=== PATIENT | female | born 1970 | race Caucasian/White ===

== ENCOUNTER 2016-11-09 10:30 | Emergency (ER) | payer OTHER ==
[2016-11-09 10:53] LABS: BASOPHIL % 0.2 % (0.0-0.4); Eosinophil % 1.7 % (0.00-5.0); Granulocytes % 58.4 % (36.0-66.0); Lymphocytes % 34.2 % (24.0-44.0); Mean Cell Volume 94.1 fl (78-100); Mean Corpuscular Hemoglobin 31.1 pg (26-32); Monocytes % 5.5 % (0.0-12.0); Platelet Count 265 K/mm3 (150-450); Red Cell Distribution Width 13.4 % (11.5-14.0); White Blood Count 8.1 K/mm3 (4.0-10.5)
[2016-11-09 11:23] LABS: ALBUMIN 3.3 g/dL (3.4-5.0); BLOOD UREA NITROGEN 9 mg/dL (9-20); CHLORIDE 105 mEq/L (98-107); Carbon Dioxide 22.3 mEq/L (21-32); Glucose 127 MG/DL (70-110); Potassium 3.5 mEq/L (3.5-5.1); SODIUM 140 mEq/L (136-145); Total Protein 7.9 gm/dL (6.4-8.2)
[2016-11-09 11:24] LABS: ALKALINE PHOSPHATASE 60 U/L (46-116); ANION GAP 16.1 MEQ/L (5-15); SGOT/AST 60 U/L (15-37); SGPT/ALT 68 U/L (12-78)
--- NOTE | 2016-11-09 11:25 | ERPHSYRPT ---
- History of Present Illness Time Seen by Provider: 11/09/16 11:10 Historian: patient, family Exam Limitations: no limitations Patient Subjective Stated Complaint: PT STATES SHE HAS HAD CHEST PAIN FOR THE PAST 2 WEEKS OFF AND ON. WORSE OVER THE LAST 12 HOURS. Triage Nursing Assessment: PT PINK, WARM, DRY. PT AFEBRILE. Physician History: Pt. states the upper left chest pain has been present x 3 weeks. 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 She has congenital syringomelia of both UE. She has been referred to pain management, but is unable to get appointment yet. Her PCP told her she would not get pain medicine from them today, so she came to the ED instead of her appt. Timing/Duration: week(s) (3) Activities at Onset: activity Quality: aching Location: shoulder Chest Pain Radiation: arm Severity of Pain-Max: moderate Severity of Pain-Current: moderate Prior Chest Pain/Cardiac Workup: no prior cardiac workup Nitro Today/Relief: no nitro taken today Aspirin Treatment Today: no aspirin today Allergies/Adverse Reactions: No Known Drug Allergies Allergy (Unverified 11/09/16 10:39) Home Medications: Buspirone HCl 5 mg [Buspar 5 mg] 0 mg PO HS 11/04/16 [History] Lisinopril [Zestril] 40 mg PO DAILY 11/04/16 [History] Hx Tetanus, Diphtheria Vaccination/Date Given: Yes (UP TO DATE) Hx Influenza Vaccination/Date Given: No Hx Pneumococcal Vaccination/Date Given: No Immunizations Up to Date: Yes - Review of Systems Constitutional: No Symptoms Eyes: No Symptoms Ears, Nose, & Throat: No Symptoms Respiratory: No Symptoms Cardiac: Chest Pain Abdominal/Gastrointestinal: No Symptoms Musculoskeletal: Arthralgias Skin: No Symptoms Neurological: No Symptoms Psychological: No Symptoms Endocrine: No Symptoms Hematologic/Lymphatic: No Symptoms Immunological/Allergic: No Symptoms - Past Medical History Pertinent Past Medical History: Yes Cardiac History: Hypertension Musculoskeletal History: Arthritis - Past Surgical History Past Surgical History: Yes Other Surgical History: CARPAL TUNEL - Social History Smoking Status: Never smoker Exposure to second hand smoke: Yes Drug Use: none Patient Lives Alone: No - Female History Hx Last Menstrual Period: 10/08/16 - Nursing Vital Signs Nursing Vital Signs: Initial Vital Signs Temperature 99.0 F Temperature Source Oral Pulse Rate [Bilateral Radial] 73 Pulse Rate 68 Respiratory Rate 18 Blood Pressure [Right Arm] 184/106 Pain Intensity 10 - Physical Exam General Appearance: mild distress Eye Exam: eyes nml inspection Ears, Nose, Throat Exam: normal ENT inspection Neck Exam: normal inspection, non-tender, supple, full range of motion Respiratory Exam: normal breath sounds, lungs clear, airway intact Cardiovascular Exam: regular rate/rhythm, normal heart sounds, normal peripheral pulses Gastrointestinal/Abdomen Exam: soft, normal bowel sounds Extremity Exam: pelvis stable, limited range of motion (left shoulder D/T pain) , other (Baseline syringomelia congenitally. ) Neurologic Exam: alert, oriented x 3, cooperative Skin Exam: normal color, warm, dry SpO2 Interpretation: normal SpO2: 100 Oxygen Delivery: Room Air - Course Nursing assessment & vital signs reviewed: Yes EKG Interpreted by Me: RATE (62), NORMAL AXIS, NORMAL INTERVALS, Other (Normal ECG) - Radiology Exams Chest X-ray Interpretation: Interpreted by me, Reviewed by me, Nml Heart Size, Other ( Mild right hilar prominence. No old image for comparison) Ordered Tests: Active Orders 24 hr Category Date Time Status Accounting Specialist STAT Care 11/09/16 10:42 Active EKG-ER Only STAT Care 11/09/16 10:42 Active IV Insertion STAT Care 11/09/16 10:42 Active CHEST 2 VIEWS (PA AND LAT) Stat Exams 11/09/16 10:43 Taken CBC W DIFF Stat Lab 11/09/16 10:45 Completed CMP Stat Lab 11/09/16 10:45 Received TROPONIN Stat Lab 11/09/16 10:45 Received Lab/Rad Data: Laboratory Result Diagrams 11/09/16 10:45 Laboratory Results 11/09/16 Range/Units 10:45 WBC 8.1 (4.0-10.5) K/mm3 RBC 4.60 (4.1-5.4) M/mm3 Hgb 14.3 (12.0-16.0) gm/dl Hct 43.3 (35-47) % MCV 94.1 (78-100) fl MCH 31.1 (26-32) pg MCHC 33.0 (32-36) g/dl RDW 13.4 (11.5-14.0) % Plt Count 265 (150-450) K/mm3 MPV 10.0 H (6-9.5) fl Gran % 58.4 (36.0-66.0) % Lymphocytes % 34.2 (24.0-44.0) % Monocytes % 5.5 (0.0-12.0) % Eosinophils % 1.7 (0.00-5.0) % Basophils % 0.2 (0.0-0.4) % Basophils # 0.02 (0-0.4) - Progress Blood Culture(s) Obtained: No Antibiotics given: No Will see patient in: office (PCP and pain management 1 week as scheduled.) Counseled pt/family regarding: lab results, diagnosis, need for follow-up, rad results - Departure Time of Disposition: 11:30 Departure Disposition: Home Clinical Impression: Chest wall pain, Arthritis of left shoulder region Condition: Stable Critical Care Time: No Instructions: Atypical Chest Pain Prescriptions: Naproxen [Naprosyn] 500 mg PO BID #20 tablet
[2016-11-09 11:27] LABS: TROPONIN < 0.017 ng/ml (0.000-0.056)
[2016-11-09] MEDS ORDERED: TORAdol 30 mg Injection IV ONE (11:29)
[2016-11-09] MEDS ORDERED: TORAdol 30 mg Injection ONE (11:33)
--- NOTE | 2016-11-09 11:37 | XRAY ---
Indication: Chest and left arm intermittent pain. Comparison: None PA/lateral chest demonstrates normal heart and lungs with focal eventration of the right hemidiaphragm and a few calcified granulomas. Bony thorax intact. Impression: Nonacute chest.
[2016-11-09 11:45] VITALS: BP 159/102; PULSE 70; O2SAT 98
== END 2016-11-09 11:45 | disposition home or self-care (01) ==
LOC: ED 10:30
DX: R07.89 Other chest pain (principal); M19.012 Primary osteoarthritis, left shoulder; G95.0 Syringomyelia and syringobulbia
CPT/HCPCS: 36000; 36415; 71020; 80053; 84484; 85025; 93005; 93041; 96374; 99283; 99285; J1885